=== PATIENT | female | born 1980 | race Caucasian/White ===

== ENCOUNTER 2018-07-10 23:45 | Emergency (ER) | payer MEDICARE, MEDICAID ==
[~2018-07-10 23:45] MED LIST: ALBU17AE27 IH; FLUT1DIS3 IH; LITH300C3 PO; MONT10TA21 PO; OLAN20TA2 PO; TIOT185 IH
== END 2018-07-10 23:50 | disposition left against medical advice (07) ==
LOC: EMS 23:46
DX: R06.02 Shortness of breath (principal); Z53.21 Procedure and treatment not carried out due to patient leaving prior to being seen by health care provider

== ENCOUNTER → 2022-03-14 | Outpatient (CLI) | payer MEDICARE, OTHER ==
[~2022-03-14] MED LIST changes: +MONT-35 PO; -MONT10TA21 PO
== END | disposition home or self-care (01) ==
LOC: LABMN 10:44
PROVIDERS: ATTEND Psychiatry & Neurology Psychiatry
DX: F25.0 Schizoaffective disorder, bipolar type (principal)
CPT/HCPCS: 80178

== ENCOUNTER 2022-10-31 12:29 | Inpatient (IN) | payer MEDICARE, OTHER ==
[~2022-10-31] VITALS: Ht 154.9 cm; Wt 54.1 kg
[2022-10-31] MEDS ORDERED: ALBUTEROL SULFATE 5 MG/ML 20 ML NEB SOLN [BULK] NEB ONE (12:40)
[2022-10-31] MEDS ORDERED: MethylPREDNISolone SOD SUCC 125 MG/2 ML VIAL IVP ONE (12:45)
[2022-10-31] MEDS ORDERED: ALBUTEROL SULFATE 2.5 MG/0.5 ML NEB SOLUTION NEB ONE ×2 (12:50→14:15)
[2022-10-31 13:07] LABS: COVID AG,FIA SOURCE NASOPHARYNGEAL
[2022-10-31 13:09] LABS: BASOPHILS % (AUTO) 0.3 % (0.0-2.0); EOSINOPHILS % (AUTO) 3.1 % (1.0-6.0); HEMATOCRIT 45.6 % (36-46); HEMOGLOBIN 15.2 g/dL (12.0-16.0); LYMPHOCYTES # (AUTO) 1.6 K/uL (1.0-4.8); LYMPHOCYTES % (AUTO) 11.1 % (22.0-44.0); MEAN CORPUSCULAR HEMOGLOBIN 33.4 pg (26.0-34.0); MEAN CORPUSCULAR HGB CONC 33.3 G/dL (31.0-37.0); MEAN CORPUSCULAR VOLUME 100 fL (80-100); MONOCYTES % (AUTO) 6.8 % (2.0-9.0); NEUTROPHILS # (AUTO) 11.5 K/uL (1.8-7.7); NEUTROPHILS % (AUTO) 78.7 % (40.0-70.0); PLATELET COUNT (AUTO) 215 K/uL (150-450); RED BLOOD CELL COUNT(AUTO) 4.56 MIL/uL (4.00-5.20)
[2022-10-31 13:26] LABS: B-TYPE NATRIURETIC PEPTIDE < 5 pg/mL (0-100)
[2022-10-31 13:31] LABS: ANION GAP 3 mmol/L (8-16); CALCIUM, TOTAL 9.4 mg/dL (8.8-10.5); CARBON DIOXIDE 32 mmol/L (22-29); CHLORIDE 102 mmol/L (98-107); GLOMERULAR FILTR. RATE CALC > 60 mL/min (>60); GLUCOSE,RANDOM 105 mg/dL (70-110); POTASSIUM 4.5 mmol/L (3.5-5.1); SODIUM SERUM 137 mmol/L (136-145); UREA NITROGEN, BLOOD 10 mg/dL (7-18)
[2022-10-31 13:56] LABS: ALANINE AMINOTRANSFERASE 28 U/L (12-78); ALBUMIN 3.8 g/dL (3.4-5.0); ALKALINE PHOSPHATASE 73 U/L (46-116); ASPARTATE AMINOTRANSFERASE 18 U/L (15-37); BILIRUBIN,TOTAL 0.2 mg/dL (0.1-1.0); CREATINE KINASE, TOTAL ONLY 88 U/L (26-192); HCG,QUANTITATIVE < 1 mIU/mL (0-6); TOTAL PROTEIN, SERUM 7.6 g/dL (6.4-8.2)
[2022-10-31 14:02] LABS: INFLUENZA TYPE A NEGATIVE FOR TYPE A (NEGATIVE); INFLUENZA TYPE B NEGATIVE FOR TYPE B (NEGATIVE)
[2022-10-31] MEDS ORDERED: MORPHINE SULFATE 2 MG/ML SYRINGE IVP PRN (14:30)
[2022-10-31] MEDS ORDERED: ACETAMINOPHEN 325 MG TABLET PO PRN (14:30)
[2022-10-31] MEDS ORDERED: BISACODYL 10 MG RECTAL RECTAL SUPPOSITORY PR PRN (14:30)
[2022-10-31] MEDS ORDERED: IPRATROPIUM BROMIDE 0.5 MG/2.5 ML NEB SOLUTION NEB PRN (14:30)
[2022-10-31] MEDS ORDERED: ALBUTEROL SULFATE 2.5 MG/0.5 ML NEB SOLUTION NEB PRN (14:30)
[2022-10-31] MEDS ORDERED: MAGNESIUM HYDROXIDE SUSPENSION 30 ML UDCUP PO PRN (14:30)
[2022-10-31] MEDS ORDERED: ONDANSETRON HCL 4 MG/2 ML VIAL IVP PRN (14:30)
[2022-10-31] MEDS: CefTRIAXone 1 GM/DEXTROSE 50 ML IV SCH (14:54)
[2022-10-31] MEDS: AZITHROMYCIN 500 MG/NS 250 ML IV SCH (15:38)
[2022-10-31] MEDS: HEPARIN SODIUM,PORCINE 5,000 UNITS/ML VIAL SQ SCH ×2 (15:39→23:56)
[2022-10-31] MEDS ORDERED: BENZONATATE 100 MG CAPSULE PO SCH (16:00)
[2022-10-31] MEDS: BENZONATATE 100 MG CAPSULE PO SCH ×2 (16:24→21:46)
[2022-10-31] MEDS: MethylPREDNISolone SOD SUCC 125 MG/2 ML VIAL IVP SCH ×2 (19:15→23:56)
[2022-10-31] MEDS: IPRATROPIUM BROMIDE 0.5 MG/2.5 ML NEB SOLUTION NEB SCH (20:04)
[2022-10-31] MEDS: ALBUTEROL SULFATE 2.5 MG/0.5 ML NEB SOLUTION NEB SCH (20:04)
[2022-10-31] MEDS: GuaiFENesin SR 600 MG ER TABLET PO SCH (21:46)
[2022-10-31] MEDS: DOCUSATE SODIUM 100 MG CAPSULE PO SCH (21:46)
[2022-10-31] MEDS: HYDROCODONE/ACETAMINOPHEN 5-325 MG TABLET PO PRN (21:46)
[2022-10-31 22:02] VITALS: BP 99/53
[2022-10-31] MEDS: FLUTICASONE/VILANTEROL 200-25 MCG/INH INHALER [14] IH SCH (23:55)
[2022-10-31] MEDS: NICOTINE 21 MG/24 HOUR PATCH TD SCH (23:55)
[2022-11-01 00:12] VITALS: BP 102/59
[2022-11-01] MEDS: ZOLPIDEM TARTRATE 5 MG TABLET PO PRN ×2 (01:53→22:48)
[2022-11-01] MEDS: HYDROCODONE/ACETAMINOPHEN 5-325 MG TABLET PO PRN ×2 (01:53→05:32)
[2022-11-01] MEDS: IPRATROPIUM BROMIDE 0.5 MG/2.5 ML NEB SOLUTION NEB SCH ×4 (02:00→19:33)
[2022-11-01] MEDS: ALBUTEROL SULFATE 2.5 MG/0.5 ML NEB SOLUTION NEB SCH ×4 (02:00→19:33)
[2022-11-01] MEDS: MethylPREDNISolone SOD SUCC 125 MG/2 ML VIAL IVP SCH ×3 (05:32→18:00)
[2022-11-01 06:49] LABS: EOSINOPHILS % (AUTO) 0 % (1.0-6.0); HEMATOCRIT 42.3 % (36-46); HEMOGLOBIN 14.1 g/dL (12.0-16.0); LYMPHOCYTES # (AUTO) 0.6 K/uL (1.0-4.8); LYMPHOCYTES % (AUTO) 4.1 % (22.0-44.0); MEAN CORPUSCULAR HEMOGLOBIN 33.3 pg (26.0-34.0); MEAN CORPUSCULAR HGB CONC 33.4 G/dL (31.0-37.0); MEAN CORPUSCULAR VOLUME 100 fL (80-100); MONOCYTES # (AUTO) 0.2 K/uL (0.1-1.0); MONOCYTES % (AUTO) 1.3 % (2.0-9.0); PLATELET COUNT (AUTO) 214 K/uL (150-450); RED BLOOD CELL COUNT(AUTO) 4.24 MIL/uL (4.00-5.20); RED CELL DISTRIBUTION WIDTH 13.8 % (11.5-14.5)
[2022-11-01 06:50] LABS: NEUTROPHILS % (AUTO) 94.6 % (40.0-70.0)
[2022-11-01 07:02] LABS: ANION GAP 3 mmol/L (8-16); CALCIUM, TOTAL 9.4 mg/dL (8.8-10.5); CARBON DIOXIDE 31 mmol/L (22-29); CHLORIDE 101 mmol/L (98-107); CREATININE 0.73 mg/dL (0.60-1.30); GLUCOSE,RANDOM 165 mg/dL (70-110); POTASSIUM 4.8 mmol/L (3.5-5.1); SODIUM SERUM 135 mmol/L (136-145); UREA NITROGEN, BLOOD 12 mg/dL (7-18)
[2022-11-01 07:03] LABS: GLOMERULAR FILTR. RATE CALC > 60 mL/min (>60)
[2022-11-01 07:36] VITALS: BP 114/63
[2022-11-01] MEDS ORDERED: NICOTINE 21 MG/24 HOUR PATCH TD SCH (09:00)
[2022-11-01] MEDS: PANTOPRAZOLE SODIUM 40 MG DR TABLET PO SCH (09:15)
[2022-11-01] MEDS: NICOTINE 21 MG/24 HOUR PATCH TD SCH (09:16)
[2022-11-01] MEDS: GuaiFENesin SR 600 MG ER TABLET PO SCH ×2 (09:16→22:48)
[2022-11-01] MEDS: DOCUSATE SODIUM 100 MG CAPSULE PO SCH ×2 (09:16→22:48)
[2022-11-01] MEDS: BENZONATATE 100 MG CAPSULE PO SCH ×3 (09:16→22:48)
[2022-11-01] MEDS: HEPARIN SODIUM,PORCINE 5,000 UNITS/ML VIAL SQ SCH ×2 (09:18→17:22)
[2022-11-01 12:00] VITALS: BP 103/60
[2022-11-01] MEDS: CefTRIAXone 1 GM/DEXTROSE 50 ML IV SCH (13:26)
[2022-11-01 15:09] VITALS: BP 102/69
[2022-11-01] MEDS: AZITHROMYCIN 500 MG/NS 250 ML IV SCH (15:41)
[2022-11-01 19:55] VITALS: BP 102/63
[2022-11-01] MEDS: FLUTICASONE/VILANTEROL 200-25 MCG/INH INHALER [14] IH SCH (22:48)
[2022-11-02] MEDS: MethylPREDNISolone SOD SUCC 125 MG/2 ML VIAL IVP SCH ×3 (00:22→11:59)
[2022-11-02] MEDS: HEPARIN SODIUM,PORCINE 5,000 UNITS/ML VIAL SQ SCH ×4 (00:22→23:13)
[2022-11-02] MEDS: IPRATROPIUM BROMIDE 0.5 MG/2.5 ML NEB SOLUTION NEB SCH ×4 (01:14→20:31)
[2022-11-02] MEDS: ALBUTEROL SULFATE 2.5 MG/0.5 ML NEB SOLUTION NEB SCH ×4 (01:14→20:31)
[2022-11-02 05:08] VITALS: BP 96/52
[2022-11-02 05:54] LABS: BASOPHILS % (AUTO) 0.3 % (0.0-2.0); EOSINOPHILS % (AUTO) 0 % (1.0-6.0); HEMATOCRIT 42.8 % (36-46); HEMOGLOBIN 14.2 g/dL (12.0-16.0); LYMPHOCYTES # (AUTO) 0.5 K/uL (1.0-4.8); LYMPHOCYTES % (AUTO) 2.3 % (22.0-44.0); MEAN CORPUSCULAR HEMOGLOBIN 33.2 pg (26.0-34.0); MEAN CORPUSCULAR HGB CONC 33.2 G/dL (31.0-37.0); MEAN CORPUSCULAR VOLUME 100 fL (80-100); MONOCYTES # (AUTO) 0.3 K/uL (0.1-1.0); MONOCYTES % (AUTO) 1.6 % (2.0-9.0); NEUTROPHILS # (AUTO) 20.2 K/uL (1.8-7.7); PLATELET COUNT (AUTO) 217 K/uL (150-450); RED BLOOD CELL COUNT(AUTO) 4.27 MIL/uL (4.00-5.20); RED CELL DISTRIBUTION WIDTH 13.7 % (11.5-14.5)
[2022-11-02 06:01] LABS: ANION GAP 1 mmol/L (8-16); CALCIUM, TOTAL 9.4 mg/dL (8.8-10.5); CARBON DIOXIDE 31 mmol/L (22-29); CHLORIDE 103 mmol/L (98-107); CREATININE 0.66 mg/dL (0.60-1.30); GLUCOSE,RANDOM 119 mg/dL (70-110); POTASSIUM 5.1 mmol/L (3.5-5.1); SODIUM SERUM 135 mmol/L (136-145); UREA NITROGEN, BLOOD 13 mg/dL (7-18)
[2022-11-02 06:06] LABS: GLOMERULAR FILTR. RATE CALC > 60 mL/min (>60)
[2022-11-02 06:16] LABS: NEUTROPHILS % (AUTO) 95.8 % (40.0-70.0)
[2022-11-02] MEDS: GuaiFENesin SR 600 MG ER TABLET PO SCH ×2 (08:31→20:27)
[2022-11-02] MEDS: NICOTINE 21 MG/24 HOUR PATCH TD SCH (08:31)
[2022-11-02] MEDS: DOCUSATE SODIUM 100 MG CAPSULE PO SCH ×2 (08:31→20:27)
[2022-11-02] MEDS: BENZONATATE 100 MG CAPSULE PO SCH ×3 (08:32→20:27)
[2022-11-02] MEDS: PANTOPRAZOLE SODIUM 40 MG DR TABLET PO SCH (08:32)
[2022-11-02 11:34] VITALS: BP 100/62
[2022-11-02] MEDS ORDERED: PredniSONE 20 MG TABLET PO ONE (13:00)
[2022-11-02] MEDS ORDERED: IBUPROFEN 800 MG TABLET PO PRN (13:00)
[2022-11-02] MEDS: CefTRIAXone 1 GM/DEXTROSE 50 ML IV SCH (14:52)
[2022-11-02 15:31] VITALS: BP 108/70
[2022-11-02] MEDS: AZITHROMYCIN 500 MG/NS 250 ML IV SCH (17:03)
[2022-11-02 20:00] VITALS: BP 104/62
[2022-11-02] MEDS: FLUTICASONE/VILANTEROL 200-25 MCG/INH INHALER [14] IH SCH (20:27)
[2022-11-02] MEDS: ZOLPIDEM TARTRATE 5 MG TABLET PO PRN (21:22)
[2022-11-03] MEDS: ALBUTEROL SULFATE 2.5 MG/0.5 ML NEB SOLUTION NEB SCH ×3 (02:00→13:45)
[2022-11-03] MEDS: IPRATROPIUM BROMIDE 0.5 MG/2.5 ML NEB SOLUTION NEB SCH ×3 (02:00→13:45)
[2022-11-03 06:15] LABS: BASOPHILS % (AUTO) 0.1 % (0.0-2.0); EOSINOPHILS % (AUTO) 0 % (1.0-6.0); HEMATOCRIT 42.2 % (36-46); LYMPHOCYTES # (AUTO) 1.5 K/uL (1.0-4.8); MEAN CORPUSCULAR HGB CONC 33.1 G/dL (31.0-37.0); MEAN CORPUSCULAR VOLUME 100 fL (80-100); MONOCYTES # (AUTO) 1.2 K/uL (0.1-1.0); MONOCYTES % (AUTO) 7.4 % (2.0-9.0); NEUTROPHILS # (AUTO) 13.7 K/uL (1.8-7.7); NEUTROPHILS % (AUTO) 83.5 % (40.0-70.0); PLATELET COUNT (AUTO) 205 K/uL (150-450); RED BLOOD CELL COUNT(AUTO) 4.24 MIL/uL (4.00-5.20); RED CELL DISTRIBUTION WIDTH 13.7 % (11.5-14.5)
[2022-11-03 06:26] LABS: ANION GAP 2 mmol/L (8-16); CALCIUM, TOTAL 9.3 mg/dL (8.8-10.5); CARBON DIOXIDE 32 mmol/L (22-29); CHLORIDE 103 mmol/L (98-107); CREATININE 0.66 mg/dL (0.60-1.30); GLUCOSE,RANDOM 107 mg/dL (70-110); POTASSIUM 4.4 mmol/L (3.5-5.1); SODIUM SERUM 137 mmol/L (136-145); UREA NITROGEN, BLOOD 13 mg/dL (7-18)
[2022-11-03 06:27] LABS: GLOMERULAR FILTR. RATE CALC > 60 mL/min (>60)
[2022-11-03 07:45] VITALS: BP 106/78
[2022-11-03] MEDS ORDERED: PredniSONE 20 MG TABLET PO SCH (09:00)
[2022-11-03] MEDS: NICOTINE 21 MG/24 HOUR PATCH TD SCH (10:04)
[2022-11-03] MEDS: PANTOPRAZOLE SODIUM 40 MG DR TABLET PO SCH (10:07)
[2022-11-03] MEDS: DOCUSATE SODIUM 100 MG CAPSULE PO SCH (10:07)
[2022-11-03] MEDS: GuaiFENesin SR 600 MG ER TABLET PO SCH (10:07)
[2022-11-03] MEDS: HEPARIN SODIUM,PORCINE 5,000 UNITS/ML VIAL SQ SCH (10:07)
[2022-11-03] MEDS: BENZONATATE 100 MG CAPSULE PO SCH (10:08)
[2022-11-03 10:56] VITALS: BP 114/81
[2022-11-03] MEDS ORDERED: AMOX1TAB16 PO ×2 (14:03→14:09)
[2022-11-03] MEDS ORDERED: PRED-729 PO ×3 (14:03→14:22)
[2022-11-03] MEDS ORDERED: PRED1 PO (14:13)
== END 2022-11-03 15:40 | disposition home or self-care (01) | DRG 189 ==
LOC: EMS 12:30 → AHU 15:31 → 5N 21:00
PROVIDERS: ADMIT Internal Medicine; ATTEND Internal Medicine
DX: J96.01 Acute respiratory failure with hypoxia (principal); R65.11 Systemic inflammatory response syndrome (SIRS) of non-infectious origin with acute organ dysfunction; J45.901 Unspecified asthma with (acute) exacerbation; E87.1 Hypo-osmolality and hyponatremia; J44.1 Chronic obstructive pulmonary disease with (acute) exacerbation; F17.200 Nicotine dependence, unspecified, uncomplicated; Z79.899 Other long term (current) drug therapy
CPT/HCPCS: 71045; 80048; 80053; 82550; 83735; 83880; 84484; 84702; 85025; 87804; 93005; 94640; 94644; 99291; J0456; J0696; J1644; J2270; J2930; Q9967; 36415-L1; 36415-TC; J7613

== ENCOUNTER 2022-12-19 12:34 | Emergency (ER) | payer MEDICARE, OTHER ==
[~2022-12-19] VITALS: Ht 154.9 cm; Wt 55.0 kg
[~2022-12-19 12:34] MED LIST changes: +AMOX1TAB16 PO
[2022-12-19] MEDS ORDERED: VERA40TA5 PO (12:55)
[2022-12-19] MEDS ORDERED: NICO-703 TD (12:55)
[2022-12-19] MEDS ORDERED: ALBU8HFA IH (12:55)
[2022-12-19] MEDS ORDERED: BUDE10.22 IH (12:55)
[2022-12-19 13:40] LABS: BASOPHILS % (AUTO) 1.1 % (0.0-2.0); EOSINOPHILS % (AUTO) 3.6 % (1.0-6.0); HEMATOCRIT 50.8 % (36-46); HEMOGLOBIN 16.5 g/dL (12.0-16.0); LYMPHOCYTES # (AUTO) 1.6 K/uL (1.0-4.8); LYMPHOCYTES % (AUTO) 22.2 % (22.0-44.0); MEAN CORPUSCULAR HEMOGLOBIN 32.7 pg (26.0-34.0); MEAN CORPUSCULAR HGB CONC 32.6 G/dL (31.0-37.0); MEAN CORPUSCULAR VOLUME 100 fL (80-100); MONOCYTES # (AUTO) 0.6 K/uL (0.1-1.0); MONOCYTES % (AUTO) 8.2 % (2.0-9.0); NEUTROPHILS # (AUTO) 4.8 K/uL (1.8-7.7); NEUTROPHILS % (AUTO) 64.9 % (40.0-70.0); PLATELET COUNT (AUTO) 217 K/uL (150-450); RED BLOOD CELL COUNT(AUTO) 5.06 MIL/uL (4.00-5.20); RED CELL DISTRIBUTION WIDTH 14.5 % (11.5-14.5)
[2022-12-19 13:51] LABS: ANION GAP 8 mmol/L (8-16); CALCIUM, TOTAL 9.7 mg/dL (8.8-10.5); CARBON DIOXIDE 31 mmol/L (22-29); CHLORIDE 100 mmol/L (98-107); CREATININE 0.73 mg/dL (0.60-1.30); GLOMERULAR FILTR. RATE CALC > 60 mL/min (>60); GLUCOSE,RANDOM 94 mg/dL (70-110); POTASSIUM 4.2 mmol/L (3.5-5.1); SODIUM SERUM 139 mmol/L (136-145); UREA NITROGEN, BLOOD 5 mg/dL (7-18)
[2022-12-19 13:56] LABS: ALANINE AMINOTRANSFERASE 20 U/L (12-78); ALBUMIN 4.4 g/dL (3.4-5.0); ALKALINE PHOSPHATASE 88 U/L (46-116); ASPARTATE AMINOTRANSFERASE 21 U/L (15-37); BILIRUBIN,TOTAL 0.5 mg/dL (0.1-1.0); LIPASE 57 U/L (73-393); TOTAL PROTEIN, SERUM 8.4 g/dL (6.4-8.2)
[2022-12-19] MEDS ORDERED: ACETAMINOPHEN 500 MG TABLET PO ONE (14:00)
[2022-12-19] MEDS ORDERED: ALBUTEROL SULFATE 2.5 MG/0.5 ML NEB SOLUTION NEB ONE (14:00)
[2022-12-19] MEDS ORDERED: IPRATROPIUM BROMIDE 0.5 MG/2.5 ML NEB SOLUTION NEB ONE (14:00)
[2022-12-19] MEDS ORDERED: PredniSONE 20 MG TABLET PO ONE (14:00)
[2022-12-19 14:05] LABS: COVID AG,FIA SOURCE NASOPHARYNGEAL
[2022-12-19 14:15] LABS: B-TYPE NATRIURETIC PEPTIDE < 5 pg/mL (0-100)
[2022-12-19 14:39] LABS: INFLUENZA TYPE A NEGATIVE FOR TYPE A (NEGATIVE); INFLUENZA TYPE B NEGATIVE FOR TYPE B (NEGATIVE)
[2022-12-19 14:49] VITALS: BP 124/66
== END 2022-12-19 15:02 | disposition home or self-care (01) ==
LOC: EMS 12:36
DX: R06.03 Acute respiratory distress (principal); J44.1 Chronic obstructive pulmonary disease with (acute) exacerbation; J45.909 Unspecified asthma, uncomplicated; F25.9 Schizoaffective disorder, unspecified; F17.210 Nicotine dependence, cigarettes, uncomplicated; Z20.822 Contact with and (suspected) exposure to COVID-19
CPT/HCPCS: 99285; 71045; 87426; 99406; 80053; 83605; 83690; 83880; 84484; 85025; 87040; 87804; 94640; 93005; J7512; J7613

== ENCOUNTER 2023-06-08 17:55 | Emergency (ER) | payer MEDICARE, OTHER ==
[~2023-06-08] VITALS: Ht 154.9 cm; Wt 54.5 kg
[~2023-06-08 17:55] MED LIST changes: -ALBU17AE27 IH; +ALBU18HF12 IH; -AMOX1TAB16 PO; +BUDE10.22 IH; -FLUT1DIS3 IH; +NICO-703 TD; +VERA40TA5 PO
[2023-06-08 19:14] VITALS: TEMP 98.6
[2023-06-08] MEDS ORDERED: SODIUM CHLORIDE 0.9% 1,000 ML IV ONE (19:45)
[2023-06-08] MEDS ORDERED: GLUCAGON,HUMAN RECOMBINANT 1 MG VIAL IVP ONE (19:45)
[2023-06-08 20:34] VITALS: BP 118/76; PULSE 77; RESP 18
== END 2023-06-08 22:00 | disposition home or self-care (01) ==
LOC: EMS 17:56
DX: T18.128A Food in esophagus causing other injury, initial encounter (principal); F41.9 Anxiety disorder, unspecified; J45.909 Unspecified asthma, uncomplicated; J44.9 Chronic obstructive pulmonary disease, unspecified; F20.9 Schizophrenia, unspecified; F31.9 Bipolar disorder, unspecified; F17.210 Nicotine dependence, cigarettes, uncomplicated
CPT/HCPCS: 99283; 96374; 71046; 96361; J1610; J7030

== ENCOUNTER 2024-02-03 14:36 | Emergency (ER) | payer MEDICARE, OTHER ==
[~2024-02-03] VITALS: Ht 154.9 cm; Wt 55.0 kg
[2024-02-03 14:44] VITALS: BP 120/78; PULSE 79; RESP 18; TEMP 98.2
== END 2024-02-03 15:47 | disposition left against medical advice (07) ==
LOC: EMS 14:45
DX: K08.89 Other specified disorders of teeth and supporting structures (principal); Z53.21 Procedure and treatment not carried out due to patient leaving prior to being seen by health care provider
CPT/HCPCS: 99281; Z7502

== ENCOUNTER 2024-09-30 21:04 | Emergency (ER) | payer MEDICARE, OTHER ==
[~2024-09-30] VITALS: Ht 154.9 cm; Wt 52.3 kg
[~2024-09-30 21:04] MED LIST changes: +AMOX-457 PO; -NICO-703 TD; +NICO-803 TD; +NICO4GUM35 PO
[2024-09-30 21:24] VITALS: TEMP 98.2
[2024-09-30] MEDS: GLUCAGON,HUMAN RECOMBINANT 1 MG VIAL IVP ONE (22:24)
[2024-09-30] MEDS: SODIUM CHLORIDE 0.9% 1,000 ML IV ONE (22:24)
[2024-09-30 22:27] LABS: BASOPHILS % (AUTO) 0.4 % (0.0-2.0); EOSINOPHILS % (AUTO) 2.2 % (1.0-6.0); HEMATOCRIT 49.1 % (36-46); HEMOGLOBIN 16.2 g/dL (12.0-16.0); LYMPHOCYTES % (AUTO) 20.9 % (22.0-44.0); MEAN CORPUSCULAR HEMOGLOBIN 33.5 pg (26.0-34.0); MEAN CORPUSCULAR HGB CONC 33.1 G/dL (31.0-37.0); MEAN CORPUSCULAR VOLUME 101 fL (80-100); MONOCYTES # (AUTO) 0.8 K/uL (0.1-1.0); MONOCYTES % (AUTO) 7.9 % (2.0-9.0); NEUTROPHILS # (AUTO) 6.7 K/uL (1.8-7.7); NEUTROPHILS % (AUTO) 68.6 % (40.0-70.0); PLATELET COUNT (AUTO) 198 K/uL (150-450); RED BLOOD CELL COUNT(AUTO) 4.84 MIL/uL (4.00-5.20); RED CELL DISTRIBUTION WIDTH 13.6 % (11.5-14.5); WHITE BLOOD COUNT (AUTO) 9.8 K/uL (4.5-11.0)
[2024-09-30 22:39] LABS: ANION GAP 4 mmol/L (8-16); CALCIUM, TOTAL 9.6 mg/dL (8.8-10.5); CARBON DIOXIDE 33 mmol/L (22-29); CHLORIDE 101 mmol/L (98-107); GLOMERULAR FILTR. RATE CALC > 60 mL/min (>60); GLUCOSE,RANDOM 97 mg/dL (70-110); POTASSIUM 4.5 mmol/L (3.5-5.1); SODIUM SERUM 138 mmol/L (136-145); UREA NITROGEN, BLOOD 18 mg/dL (7-18)
[2024-09-30 22:47] LABS: HCG,QUANTITATIVE 2 mIU/mL (0-6); LIPASE 22 U/L (16-77)
[2024-10-01] MEDS: GLUCAGON,HUMAN RECOMBINANT 1 MG VIAL IVP ONE (00:15)
[2024-10-01 01:02] LABS: APPEARANCE,URINE CLEAR (CLEAR); BILIRUBIN,URINE NEGATIVE (NEGATIVE); COLOR,URINE YELLOW (YELLOW); GLUCOSE, URINE (UA) NEGATIVE (NEGATIVE); KETONES,URINE TRACE mg/dL (NEGATIVE); LEUKOCYTE ESTERASE ,URINE NEGATIVE (NEGATIVE); NITRATE,URINE NEGATIVE (NEGATIVE); OCCULT BLOOD,URINE NEGATIVE (NEGATIVE); PH,URINE 6.5 (5.0-8.0); PROTEIN,URINE 100-200,SEE CONFIRM mg/dL (NEGATIVE); SPECIFIC GRAVITIY, URINE 1.028 (1.003-1.030); UROBILINOGEN,URINE <=1.0 mg/dL (<=1.0)
[2024-10-01 01:26] LABS: SULFOSALICYLIC ACID,URINE 2+ (Negative)
[2024-10-01 01:35] LABS: AMORPHOUS SEDIMENT,UR Few /LPF (None Seen); BACTERIA,URINE None Seen /HPF (None Seen); RBC,URINE None Seen /HPF (0-2); SQUAMOUS EPITHELIAL CELL,UR Few /LPF (None Seen); WBC,URINE None Seen /HPF (0-5)
[2024-10-01 02:25] VITALS: BP 151/90; PULSE 93; RESP 18; O2SAT 95
[2024-10-01] MEDS: LORazepam 2 MG/ML VIAL IVP ONE (03:58)
== END 2024-10-01 04:00 | disposition admitted as inpatient to this hospital (09) ==
LOC: EMS 21:04 → EDSEX 21:04 → EDBD 21:04 → EMS 10-01 04:00
DX: T18.108A Unspecified foreign body in esophagus causing other injury, initial encounter (principal); F41.9 Anxiety disorder, unspecified; J44.89 Other specified chronic obstructive pulmonary disease; F31.9 Bipolar disorder, unspecified; F20.9 Schizophrenia, unspecified; F17.210 Nicotine dependence, cigarettes, uncomplicated; M54.2 Cervicalgia; Z79.899 Other long term (current) drug therapy; Z79.51 Long term (current) use of inhaled steroids; W44.9XXA Unspecified foreign body entering into or through a natural orifice, initial encounter; Y93.89 Activity, other specified; Y92.89 Other specified places as the place of occurrence of the external cause; Y99.8 Other external cause status
CPT/HCPCS: 99285; 96374; 70490; 96361; 80048; 81001; 83690; 84702; 85025; 36415; 96375; 96376; J1610 ×2; J7030; J2060; 81002